=== PATIENT | male | born 2000 | race Native Hawaiian/Other Pacific Islander ===

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

== ENCOUNTER 2022-09-11 02:26 | Emergency (ER) | payer OTHER ==
[~2022-09-11] VITALS: Ht 182.9 cm; Wt 72.1 kg
[2022-09-11 02:40] VITALS: TEMP 98.25
[2022-09-11 03:41] LABS: PLATELET COUNT 186 K/uL (142-355)
[2022-09-11 03:59] LABS: PARTIAL THROMBOPLASTIN TIME 26.5 SECONDS (24.5-33.6)
[2022-09-11 04:50] VITALS: BP 116/71
== END 2022-09-11 04:50 | disposition home or self-care (01) ==
LOC: ED 02:26
PROVIDERS: Emergency Medicine
DX: I49.8 Other specified cardiac arrhythmias (principal); K08.89 Other specified disorders of teeth and supporting structures
CPT/HCPCS: 36415; 80307; 81002; 84443; 84484; 85027; 85379; 85610; 85730; 93005; 99283